=== PATIENT | male | born 1960 | race Caucasian/White ===

== ENCOUNTER 2016-07-15 14:08 | Outpatient (RCR) | payer OTHER ==
[~2016-07-15 14:08] MED LIST: ADVAIR IH; ASPIR-LOW81 MG PO; ASPIRIN E.C. 8181 MG PO; CETIRIZINE; LISINOPRIL20 MG PO; RT ADVAIR 228 DISKUS IH; SINGULAIR 110 MG/TAB PO; SINGULAIR10 MG PO; TYLENOL ARTHRITIS; VITAMIN C500 MG PO; ZESTRIL 20MG TA20 MG PO; ZYRTEC 10MG10 MG PO
== END 2016-10-06 08:54 ==
LOC: WSOH 14:08
DX: S81.001A Unspecified open wound, right knee, initial encounter (principal); W26.0XXA Contact with knife, initial encounter; Y92.214 College as the place of occurrence of the external cause; Y99.0 Civilian activity done for income or pay

== ENCOUNTER 2020-05-17 20:07 | Emergency (ER) | payer BC ==
[~2020-05-17] VITALS: Ht 160 cm; Wt 72.7 kg
[2020-05-17 20:22] VITALS: TEMP 97.8
[2020-05-17 20:57] VITALS: BP 139/83; PULSE 95
== END 2020-05-17 20:58 | disposition home or self-care (01) ==
LOC: COL.ER 20:07
DX: S69.92XA Unspecified injury of left wrist, hand and finger(s), initial encounter (principal); Z79.82 Long term (current) use of aspirin; W49.04XA Ring or other jewelry causing external constriction, initial encounter; Y92.009 Unspecified place in unspecified non-institutional (private) residence as the place of occurrence of the external cause

== ENCOUNTER 2021-06-09 11:28 | Emergency (ER) | payer OTHER, BC ==
[~2021-06-09] VITALS: Ht 160 cm; Wt 75.0 kg
[2021-06-09 11:39] VITALS: TEMP 97.9
[2021-06-09 12:24] VITALS: BP 126/82; PULSE 95
== END 2021-06-09 12:24 | disposition home or self-care (01) ==
LOC: COL.ER 11:28
DX: S61.213A Laceration without foreign body of left middle finger without damage to nail, initial encounter (principal); F17.200 Nicotine dependence, unspecified, uncomplicated; Z23 Encounter for immunization; W26.0XXA Contact with knife, initial encounter; Y99.0 Civilian activity done for income or pay

== ENCOUNTER → 2021-06-22 | Emergency (ER) | payer OTHER, BC ==
[2021-06-22 12:32] VITALS: BP 104/69; PULSE 88; TEMP 98
== END ==
LOC: COL.ER 11:44
DX: Z48.02 Encounter for removal of sutures (principal)

== ENCOUNTER → 2024-04-24 | Outpatient (CLI) | payer OTHER | LOC: COL.RAD 07:12 | DX: F17.201 Nicotine dependence, unspecified, in remission (principal) ==